=== PATIENT | male | born 1940 | race Caucasian/White ===

== ENCOUNTER 2018-06-30 06:55 | Day surgery (SDC) | payer MEDICARE ==
[~2018-06-30] VITALS: Ht 182.9 cm; Wt 83.0 kg
[~2018-06-30 06:55] MED LIST: AMITIZA24 MC1 PO; BAYER ASPIRIN E81 MG PO; D31000 UNIT PO; ENALAPRIL5 MG PO; HYDROCHLOROT25 MG PO; PREDNISONE1 MG PO; PREVACID15 M1 PO
[2018-06-30 09:51] VITALS: BP 156/77
== END 2018-06-30 10:00 | disposition home or self-care (01) ==
LOC: ENDO 06:55 → ORM 11:00 → ENDO 12:15 → ORM 13:45 → ENDO 13:45 → ORM 22:15
PROVIDERS: ATTEND Internal Medicine Gastroenterology
PROC: 0DB48ZX Excision of Esophagogastric Junction, Via Natural or Artificial Opening Endoscopic, Diagnostic (ICD-10-PCS; principal; 2018-06-30)
PROC: 0DB78ZX Excision of Stomach, Pylorus, Via Natural or Artificial Opening Endoscopic, Diagnostic (ICD-10-PCS; 2018-06-30)
DX: K21.9 Gastro-esophageal reflux disease without esophagitis (principal); K29.50 Unspecified chronic gastritis without bleeding; K31.7 Polyp of stomach and duodenum; K59.00 Constipation, unspecified; K62.89 Other specified diseases of anus and rectum; K57.30 Diverticulosis of large intestine without perforation or abscess without bleeding; K64.8 Other hemorrhoids; K44.9 Diaphragmatic hernia without obstruction or gangrene; I10 Essential (primary) hypertension; Z79.899 Other long term (current) drug therapy; Z86.010 Personal history of colon polyps